=== PATIENT | male | born 1960 | race Caucasian/White ===

== ENCOUNTER 2024-07-17 11:27 | Outpatient (REF) | payer MEDICARE, OTHER, SELFPAY ==
[2024-07-17 13:02] LABS: Erythrocyte Sedimentation Rate 15 MM/HR (0-15)
[2024-07-18 21:03] LABS: Lyme Abs Screen <0.90 index
[2024-07-25 12:23] LABS: Anti Nuclear Antibody Pattern Nuclear, Speckled; Anti Nuclear Antibody Screen POSITIVE (NEGATIVE); Anti Nuclear Antibody Titer 1:40 titer
== END 2024-07-17 11:28 | disposition home or self-care (01) ==
LOC: HO.LAB 11:27
PROVIDERS: PCP Internal Medicine; Visit Provider Psychiatry & Neurology Neurology
DX: I67.9 Cerebrovascular disease, unspecified (principal)
CPT/HCPCS: 36415; 82550; 85652; 86038; 86039; 86617; 86618